=== PATIENT | male | born 1945 | race Caucasian/White ===

== ENCOUNTER 2020-08-22 09:57 | Day surgery (SDC) | payer MEDICARE, BC ==
[~2020-08-22] VITALS: Ht 182.9 cm; Wt 113.6 kg
[2020-08-22 10:25] LABS: BASOPHILS 0.7 % (0-2); EOSINOPHILS 1.6 % (0-7); HEMOGLOBIN 14.2 g/dL (13.5-17.5); LYMPHOCYTES 21.1 % (15-50); MCH 28.3 pg (26.0-34.0); MCV 85.9 fL (80.0-100.0); MEAN PLATELET VOLUME 8.2 fL (7.4-10.4); MONOCYTES 7.1 % (2-11); NEUTROPHILS 69.5 % (40-80); PLATELET COUNT 264 10x3/uL (130-400); RBC 5.01 10x6/uL (4.20-6.10); RDW 15.2 % (11.5-14.5); WBC 6.3 10x3/uL (4.8-10.8)
[2020-08-22 10:29] LABS: CALC OSMOLALITY 270 mosm/kg (275-300); CARBON DIOXIDE 31.8 mmol/L (21.0-32.0); CHLORIDE - SERUM 98 mmol/L (98-107); GLUCOSE 118 mg/dL (74-106); POTASSIUM - SERUM 3.4 mmol/L (3.5-5.1); SODIUM 135 mmol/L (136-145); UREA NITROGEN 12 mg/dL (7-18); eGFR NON AFRICAN AMERICAN 77 mL/min (90-120)
[2020-08-22] MEDS ORDERED: VALSARTAN-HCTZ1 EAC2 PO (11:13)
[2020-08-22] MEDS ORDERED: ZYRTEC10 MG PO (11:13)
[2020-08-22] MEDS ORDERED: SYNTHROID200 MC1 PO (11:14)
[2020-08-22] MEDS ORDERED: PROSCAR5 MG PO (11:14)
[2020-08-22] MEDS ORDERED: PROAIR HFA8.5 G1 INH (11:15)
[2020-08-22] MEDS ORDERED: POTASSIUM CHLO20 MEQ PO (11:15)
[2020-08-22] MEDS ORDERED: MELATONIN10 M1 PO (11:16)
[2020-08-22] MEDS ORDERED: FLOVENT HFA 11012 GM INH (11:16)
[2020-08-22] MEDS ORDERED: ZYLOPRIM300 MG PO (11:17)
[2020-08-22] MEDS ORDERED: NORVASC5 MG PO (11:17)
[2020-08-22] MEDS ORDERED: MOBIC7.5 MG PO (11:17)
[2020-08-22] MEDS ORDERED: GELATIN PO (11:18)
[2020-08-22] MEDS ORDERED: VITAMIN C WIT1000 MG PO (11:19)
[2020-08-22] MEDS ORDERED: MULTI-DAY VITAM1 TAB PO (11:19)
[2020-08-22] MEDS ORDERED: PRESERVISION PO (11:20)
[2020-08-22 11:32] VITALS: BP 156/82; Ht 182.9 cm; Wt 113.6 kg
--- NOTE | 2020-08-22 13:50 | NUR ---
PIV DC'D WITH CATHETER INTACT. DC TEACHING COMPLETE. VERBALIZED UNDERSTANDING. HELPING PT TO GET DRESSED. 1415 DC'D VIA WC ACCOMPANIED BY THIS NURSE TO POV WITH ALL BELONGINGS AND DC PACKET WITH DRIVING.
--- NOTE | 2020-08-24 06:46 | OP ---
PATIENT NAME: MICHELLE HERNANDEZ MEDICAL RECORD: [id number] :43 LOCATION:D.OPS ADMISSION DATE: SURGEON: YAO GRIER DO DATE OF OPERATION: 08/22/2020 PROCEDURE: Colonoscopy with polypectomy. INDICATIONS FOR PROCEDURE: Diverticular disease and screening for colorectal cancer. SCOPE: Olympus video pediatric colonoscope. MEDICATIONS: Propofol 400 mg IV per Anesthesia. WITHDRAWAL TIME: 17 minutes. ESTIMATED BLOOD LOSS: Minimal. COMPLICATIONS: None. FINDINGS: Informed consent was given. The patient was made comfortable with the above medication. After reaching an adequate level of sedation by slow IV push, the patient was placed in his left side. A digital rectal examination was performed and was normal. The endoscope was then advanced under direct visualization through the rectum to the cecum, confirmed by the presence of the appendiceal orifice and ileocecal valve. The endoscope was slowly withdrawn. Mucosa was carefully examined. The prep quality was fair. There was a single benign-appearing sessile polyp located in the transverse colon, which measured approximately 4 mm in diameter. It was removed using hot forceps. There was evidence of mild diverticulosis involving the descending and sigmoid colon. Retroflexion was performed in the rectum with visualization of grade I internal hemorrhoids without bleeding. The endoscope was withdrawn from the patient. The patient tolerated the procedure well and there were no complications. IMPRESSION: 1. Single benign-appearing polyp located in the transverse colon as described above, status post polypectomy with hot forceps. 2. Mild diverticulosis of the descending and sigmoid colon. 3. Grade I internal hemorrhoids without bleeding. PLAN AND RECOMMENDATIONS: 1. Discharge home when recovery parameters are met. 2. Follow up biopsy specimen results. 3. High fiber diet. 4. Continue current medications. 5. Consider colonoscopy recall in 5 years. The patient is 74 and could also consider no further colonoscopies if he wishes. 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
== END 2020-08-22 14:15 | disposition home or self-care (01) ==
LOC: D.OPS 09:57
PROVIDERS: Anesthesiology; ATTEND Internal Medicine Gastroenterology
DX: Z12.11 Encounter for screening for malignant neoplasm of colon (principal); K57.30 Diverticulosis of large intestine without perforation or abscess without bleeding; K63.5 Polyp of colon; K64.0 First degree hemorrhoids